=== PATIENT | female | born 1960 ===

== ENCOUNTER 2022-05-18 12:48 | Emergency (ER) | payer OTHER ==
[~2022-05-18] VITALS: Ht 167.6 cm; Wt 111.1 kg
[2022-05-18] MEDS ORDERED: TRIBENZOR 40-11 EACH PO (13:31)
[2022-05-18] MEDS ORDERED: CRESTOR20 MG PO (13:31)
== END 2022-05-18 18:05 | disposition home or self-care (01) ==
LOC: ER 12:48
DX: R11.0 Nausea (principal); I10 Essential (primary) hypertension